=== PATIENT | female | born 1950 | race Caucasian/White ===

== ENCOUNTER 2016-10-11 20:57 | Inpatient (IN) | payer BC, OTHER ==
[~2016-10-11] VITALS: Ht 152.4 cm; Wt 68.0 kg
[2016-10-11] MEDS ORDERED: SODIUM CHLORIDE 0.9% 1,000 ML IV ONE (22:00)
[2016-10-11 22:15] LABS: Basophils # (auto) 0 uL; Basophils % (auto) 0.5 % (0.0-2.0); Eosinophils # (auto) 0.1 uL; Eosinophils % (auto) 1.2 % (0.0-7.0); Hematocrit 42.3 % (36.0-46.0); Hemoglobin 13.8 g/dL (12.2-16.2); Lymphocytes # (auto) 3.8 uL; Lymphocytes % (auto) 35.5 % (10.0-50.0); Mean Corpuscular Hemoglobin 29.1 pg (28.0-32.0); Mean Corpuscular Hgb Conc. 32.6 g/dL (32.0-36.0); Mean Corpuscular Volume 89.3 fL (80.0-100.0); Mean Platelet Volume 8.7 fL (7.4-10.4); Monocytes # (auto) 0.6 uL; Monocytes % (auto) 6.1 % (0.0-12.0); Neutrophils % (auto) 56.7 % (37.0-80.0); Platelet Count (auto) 345 10^3/uL (140-450); Red Cell Distribution Width 12.9 % (11.6-16.0); White Blood Cell 10.7 10^3/uL (4.4-10.8)
[2016-10-11 22:23] LABS: Albumin 3.5 g/dL (3.4-5.0); BUN/Creatinine Ratio 15.9; Calcium 8.8 mg/dL (8.5-10.1); Potassium 3.6 mmol/L (3.5-5.1)
[2016-10-11 22:26] LABS: Bilirubin, Total 0.4 mg/dL (0.2-1.0); Total Protein 7.6 g/dL (6.4-8.2)
[2016-10-12] MEDS ORDERED: InsuLIN REG 1unit/0.01ml Soln (100units/ml) IV ONE (00:30)
[2016-10-12] MEDS ORDERED: cloNIDine HCL 0.1 MG TAB PO ONE (04:30)
[2016-10-12] MEDS ORDERED: SODIUM CHLORIDE 0.9% 1,000 ML IV SCH (06:21)
[2016-10-12] MEDS ORDERED: NITROGLYCERIN 0.4 MG SL TAB SL PRN (06:30)
[2016-10-12] MEDS ORDERED: DEXTROSE (50%) 50ML SYRG IV PRN (06:30)
[2016-10-12] MEDS ORDERED: ASPirin 81 mg TAB PO ONE (06:30)
[2016-10-12] MEDS ORDERED: LACTULOSE 20Gm/30ML SOLN PO PRN (06:30)
[2016-10-12] MEDS ORDERED: cloNIDine HCL 0.1 MG TAB PO PRN (06:30)
[2016-10-12] MEDS ORDERED: MORPHINE SULF INJ 2 MG/ML SYRINGE 1ML IV PRN (06:30)
[2016-10-12 08:56] VITALS: BP 150/76
[2016-10-12] MEDS ORDERED: ENOXAPARIN SOD 30 MG/0.3 ML SYRINGE SC SCH (10:00)
[2016-10-12] MEDS: InsuLIN REG 1unit/0.01ml Soln (100units/ml) SC SCH ×4 (10:32→22:00)
[2016-10-12] MEDS: PANTOPRAZOLE SODIUM 40 MG/10 ML VIAL IV SCH (10:33)
[2016-10-12] MEDS: ENOXAPARIN SOD 40 MG/0.4 ML SYRINGE SC SCH (10:33)
[2016-10-12] MEDS: METOPROLOL TARTRATE 50 MG TAB PO SCH ×2 (10:33→22:00)
[2016-10-12] MEDS: ACCU-CHEK COMFORT CURVE STRIP VI SCH ×4 (10:34→23:53)
[2016-10-12] MEDS ORDERED: LORazepam 2MG/ML-1ML VIAL IV ONE (11:30)
[2016-10-12 13:00] VITALS: BP 135/77
[2016-10-12 17:12] VITALS: BP 148/71
[2016-10-12 22:00] VITALS: BP 110/47
[2016-10-12] MEDS ORDERED: ATORVASTATIN 20 MG TAB PO SCH ×2 (22:00)
[2016-10-13] MEDS: InsuLIN REG 1unit/0.01ml Soln (100units/ml) SC SCH ×3 (02:00→10:23)
[2016-10-13] MEDS: ACCU-CHEK COMFORT CURVE STRIP VI SCH ×3 (02:38→10:23)
[2016-10-13 05:02] VITALS: BP 145/69
[2016-10-13] MEDS ORDERED: SODIUM CHLORIDE 0.9% 1,000 ML IV SCH (06:21)
[2016-10-13 06:41] LABS: Basophils # (auto) 0 uL; Basophils % (auto) 0.4 % (0.0-2.0); Eosinophils # (auto) 0.3 uL; Eosinophils % (auto) 3.1 % (0.0-7.0); Hematocrit 39.5 % (36.0-46.0); Hemoglobin 12.4 g/dL (12.2-16.2); Lymphocytes # (auto) 3.7 uL; Mean Corpuscular Hgb Conc. 31.5 g/dL (32.0-36.0); Mean Platelet Volume 8.3 fL (7.4-10.4); Monocytes # (auto) 0.5 uL; Monocytes % (auto) 5.3 % (0.0-12.0); Neutrophils # (auto) 4.3 uL; Neutrophils % (auto) 49.2 % (37.0-80.0); Platelet Count (auto) 306 10^3/uL (140-450); Red Cell Distribution Width 13.4 % (11.6-16.0); White Blood Cell 8.8 10^3/uL (4.4-10.8)
[2016-10-13 07:15] LABS: Albumin 2.8 g/dL (3.4-5.0); BUN/Creatinine Ratio 16.4; Bilirubin, Total 0.4 mg/dL (0.2-1.0); Calcium 8.3 mg/dL (8.5-10.1); Magnesium 1.9 mg/dL (1.6-2.6); Potassium 3.8 mmol/L (3.5-5.1); Total Protein 6.2 g/dL (6.4-8.2)
[2016-10-13 07:36] LABS: Urine Bilirubin Negative (Negative); Urine Blood Negative /uL (Negative); Urine Color Yellow (Yellow); Urine Ketone Negative (Negative); Urine Mucus FEW (None Seen); Urine Nitrite Negative (Negative); Urine RBC 1 /hpf (0 - 4); Urine Squamous Epithelial Cell FEW /hpf (<5); Urine Urobilinogen Normal (Negative)
[2016-10-13 07:37] LABS: Urine Glucose 3+ mg/dL (Normal)
[2016-10-13 09:00] VITALS: BP 159/76
[2016-10-13] MEDS ORDERED: ASPirin 81 mg TAB PO SCH (10:00)
[2016-10-13] MEDS: ENOXAPARIN SOD 40 MG/0.4 ML SYRINGE SC SCH (10:01)
[2016-10-13] MEDS: PANTOPRAZOLE SODIUM 40 MG/10 ML VIAL IV SCH (10:01)
[2016-10-13] MEDS: METOPROLOL TARTRATE 50 MG TAB PO SCH (10:01)
[2016-10-13] MEDS ORDERED: ATOR20TA50 PO (10:52)
[2016-10-13] MEDS ORDERED: METF500T PO (10:52)
[2016-10-13] MEDS ORDERED: LISI10TA6 PO (10:52)
[2016-10-13] MEDS ORDERED: ASPI81CH43 PO (10:52)
[2016-10-13] MEDS ORDERED: GLI2T PO (10:52)
[2016-10-13] MEDS ORDERED: DEXTROSE (50%) 50ML SYRG IV PRN (11:00)
[2016-10-13] MEDS ORDERED: GLIMEPIRIDE 2 MG TAB PO ONE (11:00)
[2016-10-13] MEDS ORDERED: metFORMIN HYDROCHLORIDE 500 MG TAB PO ONE (11:00)
[2016-10-13] MEDS ORDERED: LISINOPRIL 10 MG TAB PO ONE (11:00)
[2016-10-13] MEDS ORDERED: InsuLIN REG 1unit/0.01ml Soln (100units/ml) SC SCH (11:30)
[2016-10-13] MEDS ORDERED: ACCU-CHEK COMFORT CURVE STRIP VI SCH (11:30)
[2016-10-13 12:00] VITALS: BP 159/76
[2016-10-13] MEDS ORDERED: INFLUENZA QUAD 2016-2017 0.5 ML SYRG IM ONE (12:15)
[2016-10-13] MEDS ORDERED: PNEUMOCOCCAL VACC POLYS 25 MCG/0.5 ML VIAL IM ONE (12:15)
[2016-10-13 13:00] VITALS: BP 131/63
[2016-10-13] MEDS ORDERED: metFORMIN HYDROCHLORIDE 500 MG TAB PO SCH (18:00)
[2016-10-14] MEDS ORDERED: GLIMEPIRIDE 2 MG TAB PO SCH (07:00)
[2016-10-14] MEDS ORDERED: LISINOPRIL 10 MG TAB PO SCH (10:00)
== END 2016-10-13 14:29 | disposition home or self-care (01) | DRG 64 ==
LOC: ER 21:05 → TELE 21:06 → TELE-EAST 10-12 08:56
PROVIDERS: ADMIT Family Medicine; ATTEND Internal Medicine
DX: I63.9 Cerebral infarction, unspecified (principal); N17.0 Acute kidney failure with tubular necrosis; I13.0 Hypertensive heart and chronic kidney disease with heart failure and stage 1 through stage 4 chronic kidney disease, or unspecified chronic kidney disease; G81.91 Hemiplegia, unspecified affecting right dominant side; I50.30 Unspecified diastolic (congestive) heart failure; E11.51 Type 2 diabetes mellitus with diabetic peripheral angiopathy without gangrene; E11.65 Type 2 diabetes mellitus with hyperglycemia; E66.3 Overweight; E11.21 Type 2 diabetes mellitus with diabetic nephropathy; E11.22 Type 2 diabetes mellitus with diabetic chronic kidney disease; N18.9 Chronic kidney disease, unspecified; Z79.4 Long term (current) use of insulin; Z82.3 Family history of stroke; Z23 Encounter for immunization
CPT/HCPCS: 36415; 70450; 70551; 71010; 80053; 80061; 81001; 82607; 82746; 82962; 83036; 83090; 83735; 84484; 85025; 93306; 93886; 96361; 96374; C9113; G0434; J1815

== ENCOUNTER 2023-07-11 11:17 | Inpatient (IN) | payer BC, OTHER ==
[~2023-07-11] VITALS: Ht 152.4 cm; Wt 81.5 kg
[~2023-07-11 11:17] MED LIST: ASPI81CH43 PO; ATOR20TA50 PO; GLIM2TAB94 PO; LISI10TA34 PO; METF500T PO
[2023-07-11 12:31] LABS: Hemoglobin 12.7 g/dL (12.2-16.2); Mean Corpuscular Hemoglobin 29.8 pg (28.0-32.0); Mean Corpuscular Hgb Conc. 32.5 g/dL (32.0-36.0); Mean Corpuscular Volume 91.8 fL (80.0-100.0); Red Blood Cells 4.25 10^6/uL (4.0-5.20); Red Cell Distribution Width 13.7 % (11.8-14.3); White Blood Cell 16.9 10^3/uL (4.4-10.8)
[2023-07-11 13:01] LABS: Alanine Aminotransferase 20 U/L (7-40); Albumin 3.9 g/dL (3.2-4.8); Alkaline Phosphatase 109 U/L (46-116); Anion Gap 12 (5-15); Aspartate Aminotransferase 37 U/L (13-40); Band Neutrophils % (manual) 0; Basophils % (manual) 0 (0.0-2.0); Blast Cells 0; Blood Urea Nitrogen 30 mg/dL (9-23); Carbon Dioxide 18 mmol/L (20-30); Chloride 105 mmol/L (98-107); Eosinophils % (manual) 0 (0-7); Glucose 232 mg/dL (74-106); Metamyelocytes % 0; Monocytes % (manual) 0 (0-12); Myelocytes % 0; Potassium 4.3 mmol/L (3.5-5.1); Promyelocytes % 0; Reactive Lymphocytes 0; Sodium 135 mmol/L (136-145)
[2023-07-11 13:02] LABS: Bilirubin, Total 0.6 mg/dL (0.2-1.0); Total Protein 6.2 g/dL (5.7-8.2)
[2023-07-11 13:34] VITALS: PULSE 71; RESP 16; O2SAT 98
[2023-07-11 13:42] LABS: INR 1.13 (0.9-1.15); Partial Thromboplastin Time 29.9 SEC (24.5-34.5); Prothrombin Time 11.8 sec (9.3-11.8)
[2023-07-11 14:01] LABS: Lymphocytes % (manual) 8 (10.0-50.0); Platelet Estimate Adequate
[2023-07-11] MEDS ORDERED: DEXTROSE (50%) 50ML SYRG IV PRN (17:15)
[2023-07-11] MEDS ORDERED: DOCUSATE SOD 100 MG CAP PO PRN (17:15)
[2023-07-11] MEDS ORDERED: hydrALAZINE HCL 20 MG/ML VL IV PRN (17:30)
[2023-07-11] MEDS ORDERED: ENOXAPARIN SOD 80 MG/0.8ML SYRINGE SC SCH (17:33)
[2023-07-11] MEDS: MORPHINE SULFATE INJ 2 MG/ml SYRG IV PRN (17:49)
[2023-07-11] MEDS: ONDANSETRON HCL 4 MG/2 ML VIAL IV PRN (17:49)
[2023-07-11] MEDS ORDERED: HEPARIN SODIUM (PORCINE) 5000 UNITS/ML 1ML VIAL IV ONE (18:00)
[2023-07-11] MEDS ORDERED: HEPARIN DRIP/D5W 100UNITS/ML 250 ML IV SCH (18:00)
[2023-07-11] MEDS: ACCU-CHEK COMFORT CURVE STRIP VI SCH (18:28)
[2023-07-11 18:30] LABS: Base Excess -8.5 mmol/L (-2.0-2.0)
[2023-07-11] MEDS ORDERED: MORPHINE SULFATE 4 MG/ML SYR/VIAL IV PRN (18:30)
[2023-07-11] MEDS ORDERED: NITROGLYCERIN 0.4 MG SL TAB SL PRN (18:30)
[2023-07-11] MEDS ORDERED: ACETAMINOPHEN 325 MG TAB PO PRN (18:30)
[2023-07-11] MEDS: SODIUM CHLORIDE 0.9% 1,000 ML IV SCH (19:01)
[2023-07-11] MEDS: cefTRIAXone 1GM/50ML D5W 50 ML IV SCH (19:01)
[2023-07-11 20:00] VITALS: PULSE 129; RESP 44; O2SAT 90
[2023-07-11] MEDS ORDERED: ACETAMINOPHEN 500 MG TAB PO ONE (20:00)
[2023-07-11] MEDS: InsuLIN REG 1unit/0.01ml Soln (100units/ml) SC SCH (20:40)
[2023-07-11] MEDS ORDERED: ATORVASTATIN 20 MG TAB PO SCH (22:00)
[2023-07-11 22:50] VITALS: PULSE 98; RESP 29; O2SAT 97
[2023-07-11] MEDS: PHENYLEPHRINE IV 250 ML IV SCH (22:50)
[2023-07-11] MEDS ORDERED: PHENYLEPHRINE IV 250 ML IV ONE (22:50)
[2023-07-12] VITALS (43 sets, daily range): BP systolic 83–112; BP diastolic 51–63; PULSE 96–113; RESP 19–26; TEMP 99.1–100.6; O2SAT 94–100
[2023-07-12] MEDS ORDERED: SODIUM CHLORIDE 0.9% 500 ML IV ONE (00:15)
[2023-07-12] MEDS: ACCU-CHEK COMFORT CURVE STRIP VI SCH ×4 (00:36→18:48)
[2023-07-12] MEDS: InsuLIN REG 1unit/0.01ml Soln (100units/ml) SC SCH ×5 (00:37→18:41)
[2023-07-12] MEDS: SODIUM CHLORIDE 0.9% 1,000 ML IV SCH ×2 (01:43→09:55)
[2023-07-12 01:44] LABS: Creatinine, Urine 205.87 mg/dL (30.0-125.0)
[2023-07-12] MEDS: NOREPINEPHRINE 8 MG/250ML KIT 250 ML IV SCH ×2 (01:48→15:47)
[2023-07-12 01:50] LABS: Urine Bacteria FEW /hpf (None Seen); Urine Blood 3+ /uL (Negative); Urine Clarity HAZY (Clear); Urine Color Yellow (Yellow); Urine Mucus FEW (None Seen); Urine Protein, UAD 1+ (Negative); Urine Specific Gravity 1.018 (1.001-1.035); Urine Urobilinogen Normal (Negative); Urine WBC 15 /hpf (0 - 5)
[2023-07-12 01:50] LABS: Rapid Influenza A Negative (Negative); Rapid Influenza B Negative (Negative)
[2023-07-12 01:51] LABS: COVID19 ANTIGEN SOFIA FIA NEGATIVE (NEGATIVE)
[2023-07-12] MEDS: PHENYLEPHRINE IV 250 ML IV SCH ×3 (03:07→09:35)
[2023-07-12 03:12] LABS: Hematocrit 36.1 % (36.0-46.0); Hemoglobin 11.4 g/dL (12.2-16.2); Mean Corpuscular Hemoglobin 29.4 pg (28.0-32.0); Mean Corpuscular Hgb Conc. 31.6 g/dL (32.0-36.0); Mean Corpuscular Volume 92.9 fL (80.0-100.0); Red Blood Cells 3.88 10^6/uL (4.0-5.20); Red Cell Distribution Width 14.6 % (11.8-14.3); White Blood Cell 26.3 10^3/uL (4.4-10.8)
[2023-07-12 03:19] LABS: Basophils % (manual) 0 (0.0-2.0); Blast Cells 0; Eosinophils % (manual) 0 (0-7); Metamyelocytes % 0; Promyelocytes % 0; Reactive Lymphocytes 0
[2023-07-12 04:47] LABS: INR 1.31 (0.9-1.15); Prothrombin Time 13.5 sec (9.3-11.8)
[2023-07-12 04:50] LABS: Partial Thromboplastin Time 101.5 SEC (24.5-34.5)
[2023-07-12 05:36] LABS: Alanine Aminotransferase 38 U/L (7-40); Albumin 3.4 g/dL (3.2-4.8); Alkaline Phosphatase 127 U/L (46-116); Anion Gap 15 (5-15); Aspartate Aminotransferase 67 U/L (13-40); BUN/Creatinine Ratio 15.4 (10.0-20.0); Bilirubin, Total 0.5 mg/dL (0.2-1.0); Calcium 7.8 mg/dL (8.5-10.1); Carbon Dioxide 13 mmol/L (20-30); Chloride 113 mmol/L (98-107); Glucose 194 mg/dL (74-106); Potassium 3.7 mmol/L (3.5-5.1); Sodium 141 mmol/L (136-145); Total Protein 5.4 g/dL (5.7-8.2)
[2023-07-12 05:37] LABS: Blood Urea Nitrogen 40 mg/dL (9-23)
[2023-07-12 05:53] LABS: Band Neutrophils % (manual) 27; Myelocytes % 4
[2023-07-12 05:54] LABS: Lymphocytes % (manual) 5 (10.0-50.0); Monocytes % (manual) 2 (0-12); Platelet Estimate Adequate
[2023-07-12] MEDS: ONDANSETRON HCL 4 MG/2 ML VIAL IV PRN (08:31)
[2023-07-12] MEDS: MORPHINE SULFATE INJ 2 MG/ml SYRG IV PRN (08:34)
[2023-07-12] MEDS: cefTRIAXone 1GM/50ML D5W 50 ML IV SCH (09:44)
[2023-07-12] MEDS ORDERED: MEROPENEM 1GM IVPB 100 ML IV ONE (11:15)
[2023-07-12] MEDS ORDERED: FUROSEMIDE 40 MG/4 ML VIAL IV ONE (11:15)
[2023-07-12] MEDS: ASPirin 81 mg TAB PO SCH ×2 (11:19→11:26)
[2023-07-12 11:43] LABS: Base Excess -17.3 mmol/L (-2.0-2.0)
[2023-07-12] MEDS ORDERED: MIDAZOLAM DRIP 50 mg/50mL 50 ML IV ONE (11:57)
[2023-07-12] MEDS ORDERED: ETOMIDATE (2MG/ML) 20ML VIAL IV ONE ×2 (11:57→12:30)
[2023-07-12] MEDS ORDERED: SUCCINYLCHOLINE CHLORIDE 20 MG/ML 10ML VIAL IV ONE (11:58)
[2023-07-12] MEDS: MIDAZOLAM DRIP 50 mg/50mL 50 ML IV SCH ×2 (12:06→15:47)
[2023-07-12] MEDS ORDERED: fentaNYL Drip 2500mCg/250mlNS 250 ML IV ONE (12:26)
[2023-07-12] MEDS ORDERED: fentaNYL Drip 2500mCg/250mlNS 250 ML IV SCH ×2 (12:30→13:00)
[2023-07-12] MEDS ORDERED: SODIUM CHLORIDE 0.9% 250 ML IV ONE (12:30)
[2023-07-12] MEDS ORDERED: MIDAZOLAM DRIP 50 mg/50mL 50 ML IV SCH (12:30)
[2023-07-12 12:32] LABS: INR 1.38 (0.9-1.15); Prothrombin Time 14.2 sec (9.3-11.8)
[2023-07-12] MEDS: fentaNYL Drip 2500mCg/250mlNS 250 ML IV SCH (12:39)
[2023-07-12] MEDS: PANTOPRAZOLE 40 MG/10 ML VIAL INJ IV ONE ×2 (12:45→13:29)
[2023-07-12] MEDS ORDERED: SODIUM CHLORIDE 0.9% 1,000 ML IV SCH (12:45)
[2023-07-12 12:47] LABS: Partial Thromboplastin Time 82.2 SEC (24.5-34.5)
[2023-07-12] MEDS ORDERED: VASOPRESSIN 20 UNITS in SODIUM CHL 0.9% 99 ML IV SCH (13:00)
[2023-07-12 13:35] LABS: Base Excess -18.2 mmol/L (-2.0-2.0)
[2023-07-12] MEDS ORDERED: SODIUM CHLORIDE LOCK 20 ML ONE (13:45)
[2023-07-12] MEDS ORDERED: PHENYLEPHRINE HCL 10 MG/ML VL ONE ×2 (13:45→14:25)
[2023-07-12] MEDS ORDERED: ROCURONIUM 10MG/ML 10ML VIAL IV ONE (14:25)
[2023-07-12] MEDS: VASOPRESSIN 20 UNITS in SODIUM CHL 0.9% 99 ML IV SCH (15:40)
[2023-07-12] MEDS: MEROPENEM 1GM IVPB 100 ML IV SCH ×2 (15:42→22:00)
[2023-07-12] MEDS: SODIUM BICARBONATE 50ML VIAL 150 ML in D5W 5% 1,000 ML IV SCH (16:07)
[2023-07-12] MEDS: EPINEPHrine HCL 250 ML IV SCH (16:59)
[2023-07-12] MEDS: ACETAMINOPHEN 650 MG RECT SUPP PR PRN (18:48)
[2023-07-12 20:40] LABS: Chloride 110 mmol/L (98-107); Potassium 4.7 mmol/L (3.5-5.1); Sodium 139 mmol/L (136-145)
[2023-07-12 20:41] LABS: Anion Gap 15 (5-15); Calcium 7.6 mg/dL (8.5-10.1); Carbon Dioxide 14 mmol/L (20-30)
[2023-07-12 20:46] LABS: BUN/Creatinine Ratio 11.6 (10.0-20.0); Blood Urea Nitrogen 36 mg/dL (9-23); Glucose 321 mg/dL (74-106)
[2023-07-13] VITALS (108 sets, daily range): BP systolic 70–144; BP diastolic 41–67; PULSE 67–198; RESP 18–21; TEMP 97.9–100.4; O2SAT 92–100
[2023-07-13] MEDS: InsuLIN REG 1unit/0.01ml Soln (100units/ml) SC SCH ×5 (00:38→23:55)
[2023-07-13] MEDS: ACCU-CHEK COMFORT CURVE STRIP VI SCH ×4 (00:38→18:00)
[2023-07-13] MEDS: NOREPINEPHRINE 8 MG/250ML KIT 250 ML IV SCH ×3 (00:39→14:26)
[2023-07-13] MEDS: VASOPRESSIN 20 UNITS in SODIUM CHL 0.9% 99 ML IV SCH ×3 (00:39→13:00)
[2023-07-13] MEDS: MIDAZOLAM DRIP 50 mg/50mL 50 ML IV SCH ×4 (02:31→23:45)
[2023-07-13] MEDS: SODIUM BICARBONATE 50ML VIAL 150 ML in D5W 5% 1,000 ML IV SCH ×2 (03:35→12:45)
[2023-07-13 05:39] LABS: Hemoglobin 11.1 g/dL (12.2-16.2); Mean Corpuscular Hgb Conc. 31.4 g/dL (32.0-36.0); Red Cell Distribution Width 15.4 % (11.8-14.3)
[2023-07-13 05:41] LABS: Hematocrit 35.4 % (36.0-46.0); Mean Corpuscular Hemoglobin 29.5 pg (28.0-32.0); Mean Corpuscular Volume 94.1 fL (80.0-100.0); Red Blood Cells 3.76 10^6/uL (4.0-5.20)
[2023-07-13 05:59] LABS: Alanine Aminotransferase 257 U/L (7-40); Albumin 3.2 g/dL (3.2-4.8); Alkaline Phosphatase 149 U/L (46-116); Anion Gap 14 (5-15); Aspartate Aminotransferase 426 U/L (13-40); BUN/Creatinine Ratio 11.9 (10.0-20.0); Bilirubin, Total 0.7 mg/dL (0.2-1.0); Blood Urea Nitrogen 38 mg/dL (9-23); Calcium 7.1 mg/dL (8.5-10.1); Carbon Dioxide 15 mmol/L (20-30); Chloride 105 mmol/L (98-107); Potassium 4.6 mmol/L (3.5-5.1); Total Protein 5.4 g/dL (5.7-8.2)
[2023-07-13 06:17] LABS: White Blood Cell 37.5 10^3/uL (4.4-10.8)
[2023-07-13 06:18] LABS: Basophils % (manual) 0 (0.0-2.0); Blast Cells 0; Eosinophils % (manual) 0 (0-7); Myelocytes % 0; Reactive Lymphocytes 0
[2023-07-13 06:27] LABS: Sodium 134 mmol/L (136-145)
[2023-07-13 06:29] LABS: Glucose 408 mg/dL (74-106)
[2023-07-13] MEDS: MEROPENEM 1GM IVPB 100 ML IV SCH ×2 (06:33→15:23)
[2023-07-13 07:47] LABS: Base Excess -10.7 mmol/L (-2.0-2.0)
[2023-07-13] MEDS ORDERED: LOSA50TA46 PO (08:42)
[2023-07-13] MEDS ORDERED: METF-371 PO (08:42)
[2023-07-13] MEDS ORDERED: SITA100T7 PO (08:42)
[2023-07-13] MEDS ORDERED: GLIP5TAB12 PO (08:42)
[2023-07-13] MEDS: HEPARIN SODIUM (PORCINE) 5000 UNITS/ML 1ML VIAL SC SCH ×2 (10:00→22:00)
[2023-07-13] MEDS: PANTOPRAZOLE 40 MG/10 ML VIAL INJ IV SCH (10:17)
[2023-07-13] MEDS: ACETAMINOPHEN 650 MG RECT SUPP PR PRN (12:06)
[2023-07-13 12:45] LABS: Band Neutrophils % (manual) 12; Lymphocytes % (manual) 5 (10.0-50.0); Metamyelocytes % 18; Monocytes % (manual) 5 (0-12); Promyelocytes % 5
[2023-07-13] MEDS: fentaNYL Drip 2500mCg/250mlNS 250 ML IV SCH (12:45)
[2023-07-13 12:46] LABS: Platelet Estimate Decreased
[2023-07-13 14:07] LABS: Creatinine, Urine 87.08 mg/dL (30.0-125.0)
[2023-07-13] MEDS: INSULIN LANTUS (GLARGINE) 1 /0.01ml (100units/ml) SC SCH (14:33)
[2023-07-13] MEDS: MAGNESIUM SULFATE 1GM/100ML 100 ML IV SCH ×2 (14:33→16:46)
[2023-07-13] MEDS: EPINEPHrine HCL 250 ML IV SCH ×2 (15:45→20:28)
[2023-07-13] MEDS: NOREPINEPHRINE BITARTRATE 32 MG in SODIUM CHL 0.9% 218 ML IV SCH (16:46)
[2023-07-13] MEDS ORDERED: dilTIAZem 25 MG/5 ML VIAL IV ONE ×2 (20:19→20:30)
[2023-07-13 21:24] LABS: Chloride 101 mmol/L (98-107); Potassium 3.3 mmol/L (3.5-5.1); Sodium 134 mmol/L (136-145)
[2023-07-13 21:25] LABS: Anion Gap 10 (5-15); Calcium 6.9 mg/dL (8.7-10.4); Carbon Dioxide 23 mmol/L (20-30)
[2023-07-13 21:30] LABS: BUN/Creatinine Ratio 16.4 (10.0-20.0); Blood Urea Nitrogen 37 mg/dL (9-23); Glucose 302 mg/dL (74-106)
[2023-07-13] MEDS: PHENYLEPHRINE IV 250 ML IV SCH (21:30)
[2023-07-13 21:31] LABS: Magnesium 1.7 mg/dL (1.6-2.6)
[2023-07-13 21:32] LABS: Phosphorus 2.5 mg/dL (2.4-5.1)
[2023-07-14] VITALS (109 sets, daily range): BP systolic 78–148; BP diastolic 38–79; PULSE 81–108; RESP 15–24; TEMP 98.2–100.8; O2SAT 90–100
[2023-07-14] MEDS: ACCU-CHEK COMFORT CURVE STRIP VI SCH ×4 (00:12→18:14)
[2023-07-14] MEDS: SODIUM BICARBONATE 50ML VIAL 150 ML in D5W 5% 1,000 ML IV SCH (00:47)
[2023-07-14] MEDS: VASOPRESSIN 20 UNITS in SODIUM CHL 0.9% 99 ML IV SCH ×2 (01:06→20:20)
[2023-07-14] MEDS ORDERED: POTASSIUM CHL 20MEQ/100ML 100 ML IV ONE (02:15)
[2023-07-14] MEDS ORDERED: MEROPENEM 500MG IVPB 50 ML IV SCH (03:00)
[2023-07-14] MEDS: MIDAZOLAM DRIP 50 mg/50mL 50 ML IV SCH ×4 (04:14→22:25)
[2023-07-14 05:10] LABS: Hemoglobin 10.8 g/dL (12.2-16.2)
[2023-07-14 05:13] LABS: Hematocrit 32.4 % (36.0-46.0); Mean Corpuscular Hemoglobin 29.9 pg (28.0-32.0); Mean Corpuscular Hgb Conc. 33.3 g/dL (32.0-36.0); Mean Corpuscular Volume 89.7 fL (80.0-100.0); Red Blood Cells 3.61 10^6/uL (4.0-5.20); Red Cell Distribution Width 14.2 % (11.8-14.3)
[2023-07-14 05:25] LABS: Basophils % (manual) 0 (0.0-2.0); Blast Cells 0; Eosinophils % (manual) 0 (0-7); Metamyelocytes % 0; Myelocytes % 0; Promyelocytes % 0; Reactive Lymphocytes 0; White Blood Cell 36.4 10^3/uL (4.4-10.8)
[2023-07-14 05:33] LABS: Band Neutrophils % (manual) 17; Lymphocytes % (manual) 4 (10.0-50.0); Monocytes % (manual) 3 (0-12); Platelet Estimate Decreased
[2023-07-14 05:34] LABS: Alanine Aminotransferase 192 U/L (7-40); Albumin 2.9 g/dL (3.2-4.8); Alkaline Phosphatase 192 U/L (46-116); Anion Gap 9 (5-15); Aspartate Aminotransferase 156 U/L (13-40); Calcium 6.9 mg/dL (8.7-10.4); Carbon Dioxide 25 mmol/L (20-30); Chloride 101 mmol/L (98-107); Glucose 257 mg/dL (74-106); Potassium 3.2 mmol/L (3.5-5.1); Sodium 135 mmol/L (136-145)
[2023-07-14 05:35] LABS: BUN/Creatinine Ratio 16.4 (10.0-20.0); Blood Urea Nitrogen 28 mg/dL (9-23); Magnesium 1.7 mg/dL (1.6-2.6)
[2023-07-14 05:37] LABS: Bilirubin, Total 1.4 mg/dL (0.2-1.0); Total Protein 4.8 g/dL (5.7-8.2)
[2023-07-14] MEDS: PHENYLEPHRINE IV 250 ML IV SCH ×3 (05:50→22:04)
[2023-07-14] MEDS: InsuLIN REG 1unit/0.01ml Soln (100units/ml) SC SCH ×3 (06:30→18:21)
[2023-07-14] MEDS: INSULIN LANTUS (GLARGINE) 1 /0.01ml (100units/ml) SC SCH (06:32)
[2023-07-14] MEDS: NOREPINEPHRINE BITARTRATE 32 MG in SODIUM CHL 0.9% 218 ML IV SCH (07:47)
[2023-07-14 09:09] LABS: Base Excess 2.2 mmol/L (-2.0-2.0)
[2023-07-14] MEDS: POTASSIUM CHL 20MEQ/100ML 100 ML IV SCH ×2 (09:57→10:44)
[2023-07-14] MEDS: HEPARIN SODIUM (PORCINE) 5000 UNITS/ML 1ML VIAL SC SCH (10:00)
[2023-07-14] MEDS: MAGNESIUM SULFATE 1GM/100ML 100 ML IV SCH ×2 (10:17→11:06)
[2023-07-14] MEDS: PANTOPRAZOLE 40 MG/10 ML VIAL INJ IV SCH (10:22)
[2023-07-14] MEDS ORDERED: BUMETANIDE 2.5mg/10ml (0.25 mg/ml) INJ IV ONE (10:45)
[2023-07-14] MEDS: SOD CHL 0.45% 1,000 ML IV SCH (10:57)
[2023-07-14] MEDS ORDERED: Glucerna 1.2 Cal 1Liter BOTTLE GT SCH (11:30)
[2023-07-14] MEDS ORDERED: DEXTROSE (50%) 50ML SYRG IV PRN (11:30)
[2023-07-14] MEDS: ACETAMINOPHEN 650 MG RECT SUPP PR PRN (12:28)
[2023-07-14] MEDS: fentaNYL Drip 2500mCg/250mlNS 250 ML IV SCH (15:17)
[2023-07-14] MEDS: MEROPENEM 1GM IVPB 100 ML IV SCH (21:59)
[2023-07-15] VITALS (109 sets, daily range): BP systolic 79–130; BP diastolic 42–69; PULSE 4–111; RESP 18–19; TEMP 98.2–100.2; O2SAT 92–100
[2023-07-15] MEDS: SOD CHL 0.45% 1,000 ML IV SCH ×2 (00:19→13:50)
[2023-07-15] MEDS: ACCU-CHEK COMFORT CURVE STRIP VI SCH ×4 (00:24→17:37)
[2023-07-15] MEDS: InsuLIN REG 1unit/0.01ml Soln (100units/ml) SC SCH ×4 (00:30→17:37)
[2023-07-15] MEDS: MIDAZOLAM DRIP 50 mg/50mL 50 ML IV SCH ×4 (04:50→21:52)
[2023-07-15 04:58] LABS: Hematocrit 32.2 % (36.0-46.0); Hemoglobin 10.4 g/dL (12.2-16.2); Mean Corpuscular Hemoglobin 28.7 pg (28.0-32.0); Mean Corpuscular Hgb Conc. 32.3 g/dL (32.0-36.0); Mean Corpuscular Volume 88.8 fL (80.0-100.0); Red Blood Cells 3.62 10^6/uL (4.0-5.20); Red Cell Distribution Width 13.9 % (11.8-14.3); White Blood Cell 26.3 10^3/uL (4.4-10.8)
[2023-07-15 05:50] LABS: Chloride 106 mmol/L (98-107); Potassium 3.4 mmol/L (3.5-5.1); Sodium 141 mmol/L (136-145)
[2023-07-15 05:51] LABS: Anion Gap 7 (5-15); Calcium 7.4 mg/dL (8.7-10.4); Carbon Dioxide 28 mmol/L (20-30)
[2023-07-15 05:56] LABS: BUN/Creatinine Ratio 19.6 (10.0-20.0); Blood Urea Nitrogen 20 mg/dL (9-23); Glucose 239 mg/dL (74-106)
[2023-07-15 06:14] LABS: Basophils % (manual) 0 (0.0-2.0); Blast Cells 0; Eosinophils % (manual) 0 (0-7); Monocytes % (manual) 0 (0-12); Promyelocytes % 0; Reactive Lymphocytes 0
[2023-07-15] MEDS: INSULIN LANTUS (GLARGINE) 1 /0.01ml (100units/ml) SC SCH (06:34)
[2023-07-15] MEDS: PHENYLEPHRINE IV 250 ML IV SCH ×3 (06:34→23:30)
[2023-07-15] MEDS: VASOPRESSIN 20 UNITS in SODIUM CHL 0.9% 99 ML IV SCH ×2 (07:27→18:34)
[2023-07-15 07:36] LABS: Base Excess 3.8 mmol/L (-2.0-2.0)
[2023-07-15] MEDS ORDERED: POTASSIUM CHL 20MEQ/100ML 100 ML IV ONE (09:00)
[2023-07-15 09:43] LABS: Band Neutrophils % (manual) 3; Lymphocytes % (manual) 2 (10.0-50.0); Metamyelocytes % 4; Myelocytes % 1; Toxic Granulation Marked
[2023-07-15] MEDS: PANTOPRAZOLE 40 MG/10 ML VIAL INJ IV SCH (10:03)
[2023-07-15] MEDS: MEROPENEM 1GM IVPB 100 ML IV SCH ×2 (10:04→21:52)
[2023-07-15 10:49] LABS: Platelet Estimate Decreased
[2023-07-15] MEDS ORDERED: ENOXAPARIN SOD 100 MG/1 ML SYRINGE SC ONE (11:15)
[2023-07-15] MEDS: EPINEPHrine HCL 250 ML IV SCH (15:45)
[2023-07-15] MEDS: fentaNYL Drip 2500mCg/250mlNS 250 ML IV SCH (15:48)
[2023-07-15] MEDS: NOREPINEPHRINE BITARTRATE 32 MG in SODIUM CHL 0.9% 218 ML IV SCH (16:00)
[2023-07-15] MEDS: Glucerna 1.2 Cal 1Liter BOTTLE GT SCH (18:24)
[2023-07-15] MEDS: Pro-Stat SF 30ml Vanilla GT SCH (18:25)
[2023-07-15] MEDS ORDERED: ENOXAPARIN SOD 100 MG/1 ML SYRINGE SC SCH (22:00)
[2023-07-16] VITALS (98 sets, daily range): BP systolic 85–201; BP diastolic 39–181; PULSE 68–89; RESP 16–31; TEMP 98.2–99.3; O2SAT 93–98
[2023-07-16] MEDS: ACCU-CHEK COMFORT CURVE STRIP VI SCH ×4 (02:21→18:36)
[2023-07-16] MEDS: InsuLIN REG 1unit/0.01ml Soln (100units/ml) SC SCH ×4 (02:22→18:41)
[2023-07-16] MEDS: SOD CHL 0.45% 1,000 ML IV SCH (03:15)
[2023-07-16] MEDS: VASOPRESSIN 20 UNITS in SODIUM CHL 0.9% 99 ML IV SCH ×2 (05:41→16:48)
[2023-07-16 06:35] LABS: Hematocrit 28.9 % (36.0-46.0); Hemoglobin 9.7 g/dL (12.2-16.2); Mean Corpuscular Hemoglobin 29.9 pg (28.0-32.0); Mean Corpuscular Hgb Conc. 33.6 g/dL (32.0-36.0); Mean Corpuscular Volume 89.2 fL (80.0-100.0); Red Blood Cells 3.24 10^6/uL (4.0-5.20); Red Cell Distribution Width 14.1 % (11.8-14.3); White Blood Cell 19.5 10^3/uL (4.4-10.8)
[2023-07-16 06:42] LABS: Band Neutrophils % (manual) 0; Basophils % (manual) 0 (0.0-2.0); Blast Cells 0; Metamyelocytes % 0; Myelocytes % 0; Promyelocytes % 0; Reactive Lymphocytes 0
[2023-07-16] MEDS: INSULIN LANTUS (GLARGINE) 1 /0.01ml (100units/ml) SC SCH (06:55)
[2023-07-16 07:57] LABS: Chloride 110 mmol/L (98-107); Potassium 3.6 mmol/L (3.5-5.1); Sodium 144 mmol/L (136-145)
[2023-07-16 07:58] LABS: Anion Gap 5 (5-15); Carbon Dioxide 29 mmol/L (20-30)
[2023-07-16 08:03] LABS: BUN/Creatinine Ratio 22.7 (10.0-20.0); Blood Urea Nitrogen 20 mg/dL (9-23); Glucose 217 mg/dL (74-106)
[2023-07-16 08:47] LABS: Eosinophils % (manual) 2 (0-7); Lymphocytes % (manual) 9 (10.0-50.0); Monocytes % (manual) 3 (0-12); Platelet Estimate Decreased
[2023-07-16 09:59] LABS: Base Excess 3.5 mmol/L (-2.0-2.0)
[2023-07-16] MEDS: MEROPENEM 1GM IVPB 100 ML IV SCH ×2 (10:27→18:36)
[2023-07-16] MEDS: Pro-Stat SF 30ml Vanilla GT SCH (10:27)
[2023-07-16] MEDS: PANTOPRAZOLE 40 MG/10 ML VIAL INJ IV SCH (10:27)
[2023-07-16] MEDS: fentaNYL Drip 2500mCg/250mlNS 250 ML IV SCH (12:45)
[2023-07-16] MEDS: DexmedeTOMIDine 200 MCG in D5W 5% 48 ML IV SCH (13:00)
[2023-07-16] MEDS: NOREPINEPHRINE BITARTRATE 32 MG in SODIUM CHL 0.9% 218 ML IV SCH (15:15)
[2023-07-16] MEDS: EPINEPHrine HCL 250 ML IV SCH (15:45)
[2023-07-16] MEDS ORDERED: InsuLIN REG 1unit/0.01ml Soln (100units/ml) ONE (18:18)
[2023-07-17] VITALS (57 sets, daily range): BP systolic 92–159; BP diastolic 46–77; PULSE 67–85; RESP 17–52; TEMP 98.1–99.3; O2SAT 90–100
[2023-07-17] MEDS: DexmedeTOMIDine 200 MCG in D5W 5% 48 ML IV SCH ×3 (00:20→22:30)
[2023-07-17] MEDS: ACCU-CHEK COMFORT CURVE STRIP VI SCH ×4 (00:29→17:36)
[2023-07-17] MEDS: InsuLIN REG 1unit/0.01ml Soln (100units/ml) SC SCH ×4 (00:32→17:45)
[2023-07-17] MEDS: MEROPENEM 1GM IVPB 100 ML IV SCH ×3 (01:57→17:35)
[2023-07-17] MEDS: MIDAZOLAM DRIP 50 mg/50mL 50 ML IV SCH ×3 (02:02→22:02)
[2023-07-17] MEDS: VASOPRESSIN 20 UNITS in SODIUM CHL 0.9% 99 ML IV SCH (03:42)
[2023-07-17 05:00] LABS: Hematocrit 29.8 % (36.0-46.0); Hemoglobin 9.9 g/dL (12.2-16.2); Mean Corpuscular Hemoglobin 29.8 pg (28.0-32.0); Mean Corpuscular Hgb Conc. 33.2 g/dL (32.0-36.0); Mean Corpuscular Volume 89.7 fL (80.0-100.0); Red Blood Cells 3.33 10^6/uL (4.0-5.20); Red Cell Distribution Width 14.4 % (11.8-14.3); White Blood Cell 19.4 10^3/uL (4.4-10.8)
[2023-07-17 05:16] LABS: Alanine Aminotransferase 72 U/L (7-40); Albumin 2.6 g/dL (3.2-4.8); Alkaline Phosphatase 445 U/L (46-116); Anion Gap 4 (5-15); Aspartate Aminotransferase 33 U/L (13-40); BUN/Creatinine Ratio 29.8 (10.0-20.0); Blood Urea Nitrogen 25 mg/dL (9-23); Calcium 7.9 mg/dL (8.5-10.1); Carbon Dioxide 30 mmol/L (20-30); Chloride 111 mmol/L (98-107); Glucose 163 mg/dL (74-106); Potassium 3.7 mmol/L (3.5-5.1); Sodium 145 mmol/L (136-145)
[2023-07-17 05:17] LABS: Bilirubin, Total 0.9 mg/dL (0.2-1.0); Phosphorus 2.3 mg/dL (2.4-5.1); Total Protein 4.7 g/dL (5.7-8.2)
[2023-07-17 05:30] LABS: Basophils % (manual) 0 (0.0-2.0); Blast Cells 0; Eosinophils % (manual) 0 (0-7); Metamyelocytes % 0; Myelocytes % 0; Promyelocytes % 0; Reactive Lymphocytes 0
[2023-07-17 06:01] LABS: Band Neutrophils % (manual) 6; Lymphocytes % (manual) 10 (10.0-50.0); Monocytes % (manual) 12 (0-12); Platelet Estimate Decreased
[2023-07-17] MEDS: INSULIN LANTUS (GLARGINE) 1 /0.01ml (100units/ml) SC SCH (06:24)
[2023-07-17 08:21] LABS: Base Excess 3.7 mmol/L (-2.0-2.0)
[2023-07-17] MEDS: PANTOPRAZOLE 40 MG/10 ML VIAL INJ IV SCH (09:56)
[2023-07-17] MEDS: Pro-Stat SF 30ml Vanilla GT SCH (10:00)
[2023-07-17] MEDS: fentaNYL Drip 2500mCg/250mlNS 250 ML IV SCH (12:45)
[2023-07-17] MEDS: Glucerna 1.2 Cal 1Liter BOTTLE GT SCH (12:56)
[2023-07-17] MEDS ORDERED: POTASSIUM EFFERVESENT TAB 25 MEQ GT ONE (14:00)
[2023-07-17] MEDS ORDERED: FUROSEMIDE 20 MG/2 ML VIAL IV ONE (14:00)
[2023-07-17] MEDS: NOREPINEPHRINE BITARTRATE 32 MG in SODIUM CHL 0.9% 218 ML IV SCH (15:15)
[2023-07-17] MEDS: EPINEPHrine HCL 250 ML IV SCH (15:45)
[2023-07-17] MEDS ORDERED: CEFTRIAXONE SODIUM 2 GM in D5W 5% 100 ML IV ONE (20:15)
[2023-07-18] VITALS (37 sets, daily range): BP systolic 122–175; BP diastolic 49–100; PULSE 79–95; RESP 14–30; TEMP 99.1–99.9; O2SAT 91–100
[2023-07-18] MEDS: ACCU-CHEK COMFORT CURVE STRIP VI SCH ×4 (00:37→17:50)
[2023-07-18 04:53] LABS: Hemoglobin 10.2 g/dL (12.2-16.2); Mean Corpuscular Hemoglobin 29.3 pg (28.0-32.0); Mean Corpuscular Volume 88.8 fL (80.0-100.0); Red Cell Distribution Width 14.1 % (11.8-14.3); White Blood Cell 20.6 10^3/uL (4.4-10.8)
[2023-07-18 04:58] LABS: Basophils % (manual) 0 (0.0-2.0); Eosinophils % (manual) 0 (0-7); Myelocytes % 0; Promyelocytes % 0; Reactive Lymphocytes 0
[2023-07-18 05:16] LABS: Alanine Aminotransferase 52 U/L (7-40); Albumin 2.8 g/dL (3.2-4.8); Alkaline Phosphatase 386 U/L (46-116); Anion Gap 6 (5-15); Aspartate Aminotransferase 25 U/L (13-40); BUN/Creatinine Ratio 20.5 (10.0-20.0); Bilirubin, Total 0.9 mg/dL (0.2-1.0); Blood Urea Nitrogen 17 mg/dL (9-23); Carbon Dioxide 25 mmol/L (20-30); Chloride 112 mmol/L (98-107); Glucose 132 mg/dL (74-106); Potassium 3.6 mmol/L (3.5-5.1); Sodium 143 mmol/L (136-145); Total Protein 5.2 g/dL (5.7-8.2)
[2023-07-18] MEDS: InsuLIN REG 1unit/0.01ml Soln (100units/ml) SC SCH ×4 (06:00→18:00)
[2023-07-18 07:40] LABS: Base Excess 2.9 mmol/L (-2.0-2.0)
[2023-07-18 07:50] LABS: Band Neutrophils % (manual) 7; Blast Cells 1; Lymphocytes % (manual) 11 (10.0-50.0); Metamyelocytes % 2; Monocytes % (manual) 3 (0-12)
[2023-07-18 07:51] LABS: Platelet Estimate Adequate
[2023-07-18] MEDS: MIDAZOLAM DRIP 50 mg/50mL 50 ML IV SCH ×2 (08:30→18:07)
[2023-07-18] MEDS: Pro-Stat SF 30ml Vanilla GT SCH (10:00)
[2023-07-18] MEDS: DexmedeTOMIDine 200 MCG in D5W 5% 48 ML IV SCH ×3 (10:20→23:45)
[2023-07-18] MEDS: FUROSEMIDE 20 MG/2 ML VIAL IV SCH (10:33)
[2023-07-18] MEDS: PANTOPRAZOLE 40 MG/10 ML VIAL INJ IV SCH (10:33)
[2023-07-18] MEDS: CEFTRIAXONE SODIUM 2 GM in D5W 5% 100 ML IV SCH (10:34)
[2023-07-18] MEDS: POTASSIUM EFFERVESENT TAB 25 MEQ GT SCH (10:35)
[2023-07-18] MEDS: INSULIN LANTUS (GLARGINE) 1 /0.01ml (100units/ml) SC SCH (10:37)
[2023-07-18] MEDS: fentaNYL Drip 2500mCg/250mlNS 250 ML IV SCH (12:45)
[2023-07-18] MEDS ORDERED: FLUCONAZOLE 200MG/100ML 100 ML IV ONE (14:00)
[2023-07-18] MEDS ORDERED: VANCOMYCIN PER PHARMACY 0 MG IV SCH (14:00)
[2023-07-18] MEDS: NOREPINEPHRINE BITARTRATE 32 MG in SODIUM CHL 0.9% 218 ML IV SCH (15:15)
[2023-07-18] MEDS: EPINEPHrine HCL 250 ML IV SCH (15:45)
[2023-07-18] MEDS: Glucerna 1.2 Cal 1Liter BOTTLE GT SCH (17:50)
[2023-07-18] MEDS: VANCOMYCIN 1GM/250ML 250 ML IV SCH (18:55)
[2023-07-19] VITALS (49 sets, daily range): BP systolic 86–173; BP diastolic 46–79; PULSE 52–98; RESP 10–27; TEMP 95.7–99.7; O2SAT 92–100
[2023-07-19] MEDS: MIDAZOLAM DRIP 50 mg/50mL 50 ML IV SCH (04:12)
[2023-07-19 04:24] LABS: Alanine Aminotransferase 41 U/L (7-40); Albumin 2.9 g/dL (3.2-4.8); Alkaline Phosphatase 292 U/L (46-116); Anion Gap 6 (5-15); Aspartate Aminotransferase 19 U/L (13-40); Blood Urea Nitrogen 20 mg/dL (9-23); Calcium 8.1 mg/dL (8.7-10.4); Carbon Dioxide 26 mmol/L (20-30); Chloride 111 mmol/L (98-107); Glucose 138 mg/dL (74-106); Potassium 3.7 mmol/L (3.5-5.1); Sodium 143 mmol/L (136-145)
[2023-07-19 04:25] LABS: BUN/Creatinine Ratio 29.4 (10.0-20.0); Bilirubin, Total 0.9 mg/dL (0.2-1.0); Total Protein 5.3 g/dL (5.7-8.2)
[2023-07-19 04:26] LABS: Basophils # (auto) 0.1 10 ^3/uL (0-0.2); Basophils % (auto) 0.2 % (0.0-2.0); Eosinophils # (auto) 0.1 10 ^3/uL (0-0.8); Eosinophils % (auto) 0.7 % (0.0-7.0); Hematocrit 28.6 % (36.0-46.0); Hemoglobin 9.4 g/dL (12.2-16.2); Lymphocytes # (auto) 1.9 10 ^3/uL (0.4-5.4); Lymphocytes % (auto) 9.5 % (10.0-50.0); Mean Corpuscular Hemoglobin 29.6 pg (28.0-32.0); Mean Corpuscular Hgb Conc. 32.9 g/dL (32.0-36.0); Mean Corpuscular Volume 90.1 fL (80.0-100.0); Monocytes # (auto) 0.7 10 ^3/uL (0-1.3); Monocytes % (auto) 3.4 % (0.0-12.0); Neutrophils # (auto) 17.4 10 ^3/uL (1.6-8.6); Neutrophils % (auto) 86.2 % (37.0-80.0); Red Blood Cells 3.18 10^6/uL (4.0-5.20); Red Cell Distribution Width 13.9 % (11.8-14.3); White Blood Cell 20.2 10^3/uL (4.4-10.8)
[2023-07-19] MEDS: DexmedeTOMIDine 200 MCG in D5W 5% 48 ML IV SCH (05:30)
[2023-07-19] MEDS: InsuLIN REG 1unit/0.01ml Soln (100units/ml) SC SCH ×5 (05:39→23:54)
[2023-07-19] MEDS: ACCU-CHEK COMFORT CURVE STRIP VI SCH ×5 (05:39→23:53)
[2023-07-19] MEDS: INSULIN LANTUS (GLARGINE) 1 /0.01ml (100units/ml) SC SCH (06:53)
[2023-07-19] MEDS: FUROSEMIDE 20 MG/2 ML VIAL IV SCH (09:25)
[2023-07-19] MEDS: FLUCONAZOLE 200MG/100ML 100 ML IV SCH (09:25)
[2023-07-19] MEDS: POTASSIUM EFFERVESENT TAB 25 MEQ GT SCH (09:26)
[2023-07-19] MEDS: PANTOPRAZOLE 40 MG/10 ML VIAL INJ IV SCH (09:26)
[2023-07-19] MEDS: VANCOMYCIN 1GM/250ML 250 ML IV SCH (09:27)
[2023-07-19] MEDS: Pro-Stat SF 30ml Vanilla GT SCH (09:35)
[2023-07-19] MEDS: CEFTRIAXONE SODIUM 2 GM in D5W 5% 100 ML IV SCH (09:41)
[2023-07-19] MEDS ORDERED: FUROSEMIDE 20 MG/2 ML VIAL IV ONE (11:15)
[2023-07-20] VITALS (21 sets, daily range): BP systolic 107–160; BP diastolic 57–89; PULSE 82–92; RESP 12–28; TEMP 98.8–99.9; O2SAT 92–95
[2023-07-20 04:21] LABS: Hematocrit 30.4 % (36.0-46.0); Hemoglobin 9.9 g/dL (12.2-16.2); Mean Corpuscular Hemoglobin 29.4 pg (28.0-32.0); Mean Corpuscular Hgb Conc. 32.7 g/dL (32.0-36.0); Mean Corpuscular Volume 89.8 fL (80.0-100.0); Red Blood Cells 3.38 10^6/uL (4.0-5.20); Red Cell Distribution Width 13.8 % (11.8-14.3); White Blood Cell 14.9 10^3/uL (4.4-10.8)
[2023-07-20 04:38] LABS: Alanine Aminotransferase 32 U/L (7-40); Alkaline Phosphatase 239 U/L (46-116); Anion Gap 8 (5-15); Aspartate Aminotransferase 18 U/L (13-40); Band Neutrophils % (manual) 0; Basophils % (manual) 0 (0.0-2.0); Blast Cells 0; Blood Urea Nitrogen 19 mg/dL (9-23); Calcium 7.8 mg/dL (8.7-10.4); Carbon Dioxide 26 mmol/L (20-30); Chloride 108 mmol/L (98-107); Glucose 109 mg/dL (74-106); Metamyelocytes % 0; Myelocytes % 0; Potassium 3.4 mmol/L (3.5-5.1); Promyelocytes % 0; Reactive Lymphocytes 0; Sodium 142 mmol/L (136-145)
[2023-07-20 04:40] LABS: Total Protein 5.5 g/dL (5.7-8.2)
[2023-07-20] MEDS: ACCU-CHEK COMFORT CURVE STRIP VI SCH ×4 (06:00→23:10)
[2023-07-20] MEDS: InsuLIN REG 1unit/0.01ml Soln (100units/ml) SC SCH ×4 (06:00→23:08)
[2023-07-20 06:53] LABS: Eosinophils % (manual) 2 (0-7); Lymphocytes % (manual) 18 (10.0-50.0); Monocytes % (manual) 4 (0-12); Platelet Estimate Adequate
[2023-07-20] MEDS ORDERED: POTASSIUM EFFERVESENT TAB 25 MEQ PO ONE (07:45)
[2023-07-20] MEDS: POTASSIUM EFFERVESENT TAB 25 MEQ GT SCH (09:13)
[2023-07-20] MEDS: Pro-Stat SF 30ml Vanilla GT SCH (09:13)
[2023-07-20] MEDS: PANTOPRAZOLE 40 MG/10 ML VIAL INJ IV SCH (09:15)
[2023-07-20] MEDS: FUROSEMIDE 20 MG/2 ML VIAL IV SCH (09:16)
[2023-07-20] MEDS: FLUCONAZOLE 200MG/100ML 100 ML IV SCH (09:16)
[2023-07-20] MEDS: VANCOMYCIN 1GM/250ML 250 ML IV SCH (09:34)
[2023-07-20] MEDS: CEFTRIAXONE SODIUM 2 GM in D5W 5% 100 ML IV SCH (11:14)
[2023-07-21 05:48] VITALS: BP 153/58; PULSE 83; RESP 20; TEMP 99.2; O2SAT 95
[2023-07-21] MEDS: ACCU-CHEK COMFORT CURVE STRIP VI SCH ×4 (06:00→23:03)
[2023-07-21] MEDS: InsuLIN REG 1unit/0.01ml Soln (100units/ml) SC SCH ×4 (06:00→23:09)
[2023-07-21 06:30] LABS: Basophils # (auto) 0.1 10 ^3/uL (0-0.2); Basophils % (auto) 0.4 % (0.0-2.0); Eosinophils # (auto) 0.1 10 ^3/uL (0-0.8); Eosinophils % (auto) 1.1 % (0.0-7.0); Hematocrit 30.4 % (36.0-46.0); Hemoglobin 9.9 g/dL (12.2-16.2); Lymphocytes # (auto) 2.2 10 ^3/uL (0.4-5.4); Lymphocytes % (auto) 17.9 % (10.0-50.0); Mean Corpuscular Hemoglobin 29.1 pg (28.0-32.0); Mean Corpuscular Hgb Conc. 32.7 g/dL (32.0-36.0); Mean Corpuscular Volume 88.9 fL (80.0-100.0); Monocytes # (auto) 0.6 10 ^3/uL (0-1.3); Monocytes % (auto) 5.3 % (0.0-12.0); Neutrophils # (auto) 9.2 10 ^3/uL (1.6-8.6); Neutrophils % (auto) 75.3 % (37.0-80.0); Nucleated Red Blood Cells % 0.1 %; Red Blood Cells 3.42 10^6/uL (4.0-5.20); Red Cell Distribution Width 14.2 % (11.8-14.3); White Blood Cell 12.2 10^3/uL (4.4-10.8)
[2023-07-21 07:07] LABS: Alanine Aminotransferase 29 U/L (7-40); Anion Gap 7 (5-15); Carbon Dioxide 25 mmol/L (20-30); Chloride 108 mmol/L (98-107); Potassium 3.8 mmol/L (3.5-5.1); Sodium 140 mmol/L (136-145)
[2023-07-21 07:08] LABS: Glucose 157 mg/dL (74-106)
[2023-07-21 07:09] LABS: Aspartate Aminotransferase 16 U/L (13-40); BUN/Creatinine Ratio 25.4 (10.0-20.0); Blood Urea Nitrogen 18 mg/dL (9-23)
[2023-07-21 07:11] LABS: Bilirubin, Total 0.9 mg/dL (0.2-1.0); Total Protein 5.6 g/dL (5.7-8.2)
[2023-07-21 08:00] VITALS: BP 147/70; PULSE 82; PULSE 86; RESP 16; TEMP 99.5; O2SAT 92
[2023-07-21 10:53] LABS: Alkaline Phosphatase 208 U/L (46-116)
[2023-07-21] MEDS: PANTOPRAZOLE 40 MG TAB PO SCH (11:00)
[2023-07-21] MEDS: FLUCONAZOLE 100 MG TAB PO SCH (11:00)
[2023-07-21] MEDS: FUROSEMIDE 20 MG/2 ML VIAL IV SCH (11:01)
[2023-07-21] MEDS: Pro-Stat SF 30ml Vanilla GT SCH (11:01)
[2023-07-21] MEDS: POTASSIUM EFFERVESENT TAB 25 MEQ GT SCH (11:01)
[2023-07-21] MEDS: CEFTRIAXONE SODIUM 2 GM in D5W 5% 100 ML IV SCH (11:20)
[2023-07-21 12:00] VITALS: BP 133/66; PULSE 90; RESP 18; TEMP 98.7; O2SAT 93
[2023-07-21] MEDS ORDERED: VANCOMYCIN 1GM/250ML 250 ML IV SCH ×2 (15:00)
[2023-07-21 16:00] VITALS: BP 132/75; PULSE 82; RESP 18; TEMP 99; O2SAT 93
[2023-07-21 20:00] VITALS: PULSE 82
[2023-07-21 22:00] VITALS: BP 150/79; PULSE 86; RESP 18; TEMP 98.9; O2SAT 96
[2023-07-22 05:00] VITALS: BP 139/71; PULSE 81; RESP 18; TEMP 98.2; O2SAT 100
[2023-07-22] MEDS: ACCU-CHEK COMFORT CURVE STRIP VI SCH ×2 (05:44→12:22)
[2023-07-22] MEDS: InsuLIN REG 1unit/0.01ml Soln (100units/ml) SC SCH ×2 (05:50→12:22)
[2023-07-22 08:00] VITALS: BP 153/99; PULSE 79; PULSE 84; RESP 18; TEMP 98.5; O2SAT 95
[2023-07-22] MEDS: POTASSIUM EFFERVESENT TAB 25 MEQ GT SCH (10:41)
[2023-07-22] MEDS: PANTOPRAZOLE 40 MG TAB PO SCH (10:42)
[2023-07-22] MEDS: FLUCONAZOLE 100 MG TAB PO SCH (10:42)
[2023-07-22] MEDS: FUROSEMIDE 20 MG/2 ML VIAL IV SCH (10:42)
[2023-07-22] MEDS: CEFTRIAXONE SODIUM 2 GM in D5W 5% 100 ML IV SCH (10:42)
[2023-07-22] MEDS: Pro-Stat SF 30ml Vanilla GT SCH (10:43)
[2023-07-22 12:00] VITALS: BP 143/72; PULSE 77; RESP 16; TEMP 98.6; O2SAT 94
[2023-07-22] MEDS ORDERED: DOCU-265 PO (14:38)
[2023-07-22 17:28] VITALS: BP 143/72; PULSE 77; RESP 18; TEMP 98.6; O2SAT 95
== END 2023-07-22 18:20 | disposition home or self-care (01) | DRG 853 ==
LOC: ER 11:17 → TELE 17:23 → ICU CENTRL 07-12 15:20 → ICU WEST 07-18 05:00 → TELE-EAST 07-20 19:00
PROVIDERS: ADMIT Internal Medicine; ATTEND Internal Medicine
PROC: 05HD33Z Insertion of Infusion Device into Right Cephalic Vein, Percutaneous Approach (ICD-10-PCS; 2023-07-09)
PROC: B54MZZA Ultrasonography of Right Upper Extremity Veins, Guidance (ICD-10-PCS; 2023-07-09)
PROC: 0T768DZ Dilation of Right Ureter with Intraluminal Device, Via Natural or Artificial Opening Endoscopic (ICD-10-PCS; 2023-07-12)
PROC: 05HM33Z Insertion of Infusion Device into Right Internal Jugular Vein, Percutaneous Approach (ICD-10-PCS; 2023-07-12)
PROC: 5A1955Z Respiratory Ventilation, Greater than 96 Consecutive Hours (ICD-10-PCS; principal; 2023-07-13)
PROC: 0BH17EZ Insertion of Endotracheal Airway into Trachea, Via Natural or Artificial Opening (ICD-10-PCS; 2023-07-13)
PROC: BT161ZZ Fluoroscopy of Right Ureter using Low Osmolar Contrast (ICD-10-PCS; 2023-07-13)
DX: A41.51 Sepsis due to Escherichia coli [E. coli] (principal); G92.8 Other toxic encephalopathy; R65.21 Severe sepsis with septic shock; J96.00 Acute respiratory failure, unspecified whether with hypoxia or hypercapnia; I50.41 Acute combined systolic (congestive) and diastolic (congestive) heart failure; I21.A1 Myocardial infarction type 2; N17.9 Acute kidney failure, unspecified; E87.20 Acidosis, unspecified; N13.6 Pyonephrosis; E11.21 Type 2 diabetes mellitus with diabetic nephropathy; E11.65 Type 2 diabetes mellitus with hyperglycemia; E66.9 Obesity, unspecified; E78.5 Hyperlipidemia, unspecified; I11.0 Hypertensive heart disease with heart failure; I48.91 Unspecified atrial fibrillation; R31.9 Hematuria, unspecified; M25.50 Pain in unspecified joint; Z20.822 Contact with and (suspected) exposure to COVID-19; Z68.35 Body mass index [BMI] 35.0-35.9, adult; Z86.73 Personal history of transient ischemic attack (TIA), and cerebral infarction without residual deficits
CPT/HCPCS: 36415; 36600; 71045; 71250; 74018; 74176; 76000; 80048; 80053; 80061; 80202; 81001; 82565; 82570; 82805; 82962; 83036; 83605; 83735; 83880; 84100; 84133; 84300; 84443; 84484; 85007; 85025; 85027; 85379; 85610; 85730; 87040; 87077; 87081; 87086; 87186; 87426; 87804; 92610; 93005; 93306; 93970; 94002; 94003; 94640; 97110; 97116; 97163; 97530; C9113; G0378; J0171; J0330; J0696; J1450; J1815; J2185; J2250; J2405; J3480; J7060